=== PATIENT | female | born 1995 | race Two or more races ===

== ENCOUNTER → 2023-01-05 | Emergency (ER) | payer OTHER ==
[~2023-01-05] VITALS: Ht 165.1 cm; Wt 102.1 kg
[~2023-01-05] MED LIST: FLOVENT HFA12 G1 IH; PHENAGIL TABLE1 EACH PO; SINGULAIR10 MG PO; TOPROL XL25 M1 PO; ZITHROMAX500 MG PO
== END | disposition home or self-care (01) ==
LOC: ER 00:18
DX: J02.9 Acute pharyngitis, unspecified (principal)

== ENCOUNTER 2023-03-21 22:20 | Emergency (ER) | payer OTHER ==
[~2023-03-21] VITALS: Ht 165.1 cm; Wt 106.6 kg
== END 2023-03-22 06:40 | disposition home or self-care (01) ==
LOC: ER
DX: S90.31XA Contusion of right foot, initial encounter (principal); W22.8XXA Striking against or struck by other objects, initial encounter; Y93.89 Activity, other specified; Y92.832 Beach as the place of occurrence of the external cause; Y99.9 Unspecified external cause status; Z91.013 Allergy to seafood

== ENCOUNTER 2023-11-15 11:10 | Emergency (ER) | payer OTHER ==
[~2023-11-15] VITALS: Ht 165.1 cm; Wt 113.4 kg
== END 2023-11-15 14:42 | disposition home or self-care (01) ==
LOC: ER 11:10
DX: B34.9 Viral infection, unspecified (principal); Z20.822 Contact with and (suspected) exposure to COVID-19; Z91.013 Allergy to seafood